=== PATIENT | female | born 1990 | race Caucasian/White ===

== ENCOUNTER 2018-05-24 15:26 | Emergency (ER) | payer OTHER ==
[2018-05-24 15:44] VITALS: BMI 28.3
--- NOTE | 2018-05-24 16:18 | PDOC ---
History of Present Illness - General Chief Complaint: Pain Stated Complaint: BODY ACHES Time Seen by Provider: 05/24/18 16:18 - History of Present Illness Initial Comments: 05/25/18 10:46 Chief complaint: Body aches History of present illness: Patient developed generalized body aches during the day today, mild nausea, and rapid heartbeat Review of systems: Denies fever/chills, URI symptoms, sore throat, cough, chest pain, shortness of breath, abdominal pain, nausea, vomiting, diarrhea, dysuria or other urinary tract symptoms, vaginal discharge. She is just finishing her menses. No missed periods. She had a flu shot several weeks ago. Past medical history: Hypothyroidism, but otherwise healthy. Social/family history: No drugs or recent alcohol, tobacco. Family history: Reviewed and noncontributory Physical exam: Alert oriented 3 well-developed well-nourished mild distress due to body aches and nausea. No localizing pain Afebrile, vital signs normal except for mild tachycardia 120/m PERRLA 4 mm, fundi benign with sharp disc margins and good central venous pulsations. Conjunctivae, ears, nose, throat clear. Dentition, however, especially of the right lower molars, shows considerable damage, but no inflammation or swelling of the gingiva and no palpable or visible swelling of the face. Neck supple without bruit mass or nodes. No thyroid enlargement or inflammation is visualized or palpated Lungs clear to P&A bilaterally, full breath sounds. No wheezes rales or rhonchi CV S1 and S2 normal without murmur rub or gallop pulses full and symmetric no JVD or edema no bruits. Careful auscultation with the patient sitting up and leaning forward showed no murmurs or rubs as well. Abdomen soft nontender without mass or organomegaly. Nondistended. Bowel sounds normal. No CVAT Extremities no CCE. Skin clear, no rash, adequate turgor and wet mucous membranes Neurological C2 to 12 intact. Strength full and symmetric. No focal sensory or motor deficits. Gait stable and unimpaired. Impression: Most likely viral syndrome, flu variant, rule out occult UTI. No obvious evidence of tickborne illness or subacute bacterial endocarditis. Plan: CBC, chemistries, urinalysis, urine culture, blood cultures. Symptomatic treatment with fluids and analgesics. Observation Past History - Past Medical History Allergies/Adverse Reactions: Allergies Allergy/AdvReac Type Severity Reaction Status Date / Time No Known Allergies Allergy Verified 05/24/18 15:28 Home Medications: Ambulatory Orders Levothyroxine [Synthroid -] 50 mcg PO DAILY 05/24/18 Phentermine HCl 30 mg PO DAILY 05/24/18 COPD: No Thyroid Disease: Yes - Immunization History Td Vaccination: Yes Immunization Up to Date: Yes - Suicide/Smoking/Psychosocial Hx Smoking Status: Yes Smoking History: Former smoker Have you smoked in the past 12 months: No Number of Cigarettes Smoked Daily: 3 If you are a former smoker, when did you quit?: 2 YEARS AGO Information on smoking cessation initiated: No Hx Alcohol Use: No Drug/Substance Use Hx: No Substance Use Type: None *Physical Exam - Vital Signs Last Vital Signs Temp Pulse Resp BP Pulse Ox 99 F 120 H 16 114/77 100 05/24/18 15:27 05/24/18 15:27 05/24/18 15:27 05/24/18 15:27 05/24/18 15:27 ED Treatment Course - LABORATORY CBC & Chemistry Diagram: 05/24/18 16:49 05/24/18 16:49 Medical Decision Making - Medical Decision Making 05/24/18 18:47 White blood count is over 22,000, with a left shift, but otherwise blood work is without significant abnormality. Urine shows no sign of infection. Blood cultures and urine cultures pending. Lactate drawn. Patient feels much better. Myalgias have resolved. She is asymptomatic at present except for the awareness of an accelerated heart rate, which may be partially due to anxiety. Awaiting lactate level. Signed out to Dr. Youngblood at 7 PM pending lactate level and further observation and disposition. 05/25/18 10:54 *DC/Admit/Observation/Transfer Diagnosis at time of Disposition: Myalgia, Leukocytosis - Discharge Dispostion Disposition: HOME Condition at time of disposition: Stable - Referrals - Patient Instructions Additional Instructions: For body aches alternate Tylenol with Motrin 2 tablets every 3-4 hours. Stay well-hydrated. Return to the emergency department immediately with ANY new, persistent or worsening symptoms. Continue any medications as previously prescribed by your physician. You should follow up with your primary doctor as soon as possible regarding today's emergency department visit. . Please make sure your doctor reviews the results of your emergency evaluation. Thank you for coming to the Emergency Department today for your care. It was a pleasure to see you today. Please note that your evaluation is INCOMPLETE until you follow-up with your doctor. - Post Discharge Activity Forms/Work/School Notes: Back to Work
[2018-05-24] MEDS ORDERED: SODIUM CHLORIDE 1,000 ML IV STA ×2 (16:19→18:50)
[2018-05-24] MEDS ORDERED: ACETAMINOPHEN 1000 MG/100 ML VIAL (NON FORMULARY) IVPB ONE (16:19)
[2018-05-24] MEDS ORDERED: ACETAMINOPHEN INJECTION 100 ML IVPB ONE (16:36)
[2018-05-24 16:41] LABS: URINE APPEARANCE Slightly; URINE BILIRUBIN Negative (NEGATIVE); URINE COLOR Yellow; URINE GLUCOSE (UA) Negative (NEGATIVE); URINE KETONE Trace (NEGATIVE); URINE LEUK ESTERASE TRACE (NEGATIVE); URINE NITRITE Negative (NEGATIVE); URINE PROTEIN 1+ (NEGATIVE); URINE UROBILINOGEN 0.2 (0.2-1.0)
[2018-05-24 16:59] LABS: HEMATOCRIT 37.7 % (32.4-45.2); HEMOGLOBIN 12.3 GM/dl (10.7-15.3); MCH 29.2 pg (25.7-33.7); MCHC 32.6 g/dl (32.0-36.0); MEAN CELL VOLUME 89.7 fl (80-96); MEAN PLT VOLUME 7.8 fl (7.5-11.1); PLATELET COUNT 270 K/MM3 (134-434); RDW 12.9 % (11.6-15.6); WHITE BLOOD COUNT 22.6 K/mm3 (4.0-10.8)
[2018-05-24 17:00] LABS: EPI CELLS FEW /HPF; URINE BACTERIA 1+ /hpf (NEGATIVE)
[2018-05-24 17:09] LABS: ALK PHOS 42 U/L (32-92); ANION GAP 6 MMOL/L (8-16); BILIRUBIN,TOTAL 0.7 mg/dl (0.2-1.0); BLOOD UREA NITROGEN 12 mg/dl (7-18); CALCIUM 9.2 mg/dl (8.4-10.2); CHLORIDE 103 mmol/L (98-107); CO2 21 mmol/L (22-28); CREATININE 0.6 mg/dl (0.6-1.3); GLUCOSE,RANDOM 108 mg/dl (74-106); SGOT/AST 16 U/L (10-42); SGPT/ALT 12 U/L (10-40); SODIUM 130 mmol/L (136-145); TOT PROT 7.3 g/dl (6.4-8.3)
[2018-05-24 17:27] LABS: POTASSIUM 4.1 mmol/L (3.5-5.1)
[2018-05-24 17:30] LABS: PLATELET ESTIMATE ADEQUATE
[2018-05-24 19:55] VITALS: BP 109/70; PULSE 94; TEMP 99
--- NOTE | 2018-05-24 20:02 | PDOC ---
*Physical Exam - Vital Signs Last Vital Signs Temp Pulse Resp BP Pulse Ox 99 F 94 H 16 109/70 100 05/24/18 19:54 05/24/18 19:54 05/24/18 19:54 05/24/18 19:54 05/24/18 19:54 ED Treatment Course - LABORATORY CBC & Chemistry Diagram: 05/24/18 16:49 05/24/18 16:49 - ADDITIONAL ORDERS Additional order review: Laboratory Results 05/24/18 05/24/18 05/24/18 17:50 16:49 16:30 Sodium 130 L Potassium 4.1 Chloride 103 Carbon Dioxide 21 L Anion Gap 6 L BUN 12 Creatinine 0.6 Creat Clearance w eGFR > 60 Random Glucose 108 H D Lactic Acid 0.7 Calcium 9.2 Total Bilirubin 0.7 AST 16 ALT 12 Alkaline Phosphatase 42 Total Protein 7.3 Albumin 4.0 Urine Color Yellow Urine Appearance Slightly Urine pH 8.0 Ur Specific [place] 1.020 Urine Protein 1+ H Urine Glucose (UA) Negative Urine Ketones Trace Urine Blood 1+ H Urine Nitrite Negative Urine Bilirubin Negative Urine Urobilinogen 0.2 Ur Leukocyte Esterase Trace H D Urine RBC 10-20 Urine WBC 2-5 Ur Epithelial Cells Few Urine Bacteria 1+ 05/24/18 16:49 RBC 4.20 MCV 89.7 MCHC 32.6 RDW 12.9 MPV 7.8 Neutrophils % No Result Required. Lymphocytes % No Result Required. - Medications Given in the ED: ED Medications Discontinued Medications Generic Name Dose Route Start Last Admin Trade Name Artq PRN Reason Stop Dose Admin Acetaminophen 1,000 mg 05/24/18 16:19 05/24/18 16:49 Ofirmev Injection - IVPB 05/24/18 16:20 1,000 mg ONCE ONE Administration Sodium Chloride 1,000 mls @ 1,000 mls/hr 05/24/18 16:19 05/24/18 16:49 Normal Saline - IV 05/24/18 17:18 1,000 mls/hr ASDIR STA Administration Sodium Chloride 1,000 mls @ 1,000 mls/hr 05/24/18 18:50 05/24/18 18:54 Normal Saline - IV 05/24/18 19:49 1,000 mls/hr ASDIR STA Administration Progress Note - Progress Note Progress Note: This Patient Was Transferred to [place] from Dr. Williamson at 1900 hrs. Patient is a 28-year-old female who is healthy with no significant medical history who comes in complaining of fever and body aches. Patient does have a markedly elevated white count with a left shift. Patient was hydrated with IV fluid and given IV Tylenol with resolution of her complaints and symptoms. Patient's lactic acid is pending\ Plan is if patient's lactic acid is normal patient will be discharged told to follow up with her doctor on Tuesday and return if any thing worsens. 20:0 patient's lactic acid is normal. Patient will be discharged home *DC/Admit/Observation/Transfer Diagnosis at time of Disposition: Myalgia Leukocytosis Qualifiers: Leukocytosis type: unspecified Qualified Code(s): D72.829 - Elevated white blood cell count, unspecified - Discharge Dispostion Disposition: HOME Condition at time of disposition: Stable Decision to Admit order: No - Referrals - Patient Instructions Additional Instructions: For body aches alternate Tylenol with Motrin 2 tablets every 3-4 hours. Stay well-hydrated. Return to the emergency department immediately with ANY new, persistent or worsening symptoms. Continue any medications as previously prescribed by your physician. You should follow up with your primary doctor as soon as possible regarding today's emergency department visit. . Please make sure your doctor reviews the results of your emergency evaluation. Thank you for coming to the Emergency Department today for your care. It was a pleasure to see you today. Please note that your evaluation is INCOMPLETE until you follow-up with your doctor. - Post Discharge Activity
== END 2018-05-24 20:16 | disposition home or self-care (01) ==
LOC: FER 15:26
PROC: 3E033NZ Introduction of Analgesics, Hypnotics, Sedatives into Peripheral Vein, Percutaneous Approach (ICD-10-PCS; principal; 2018-05-24)
PROC: 3E0337Z Introduction of Electrolytic and Water Balance Substance into Peripheral Vein, Percutaneous Approach (ICD-10-PCS; 2018-05-24)
DX: M79.10 Myalgia, unspecified site (principal); D72.829 Elevated white blood cell count, unspecified; E03.9 Hypothyroidism, unspecified
CPT/HCPCS: 36415; 80053; 81003; 81015; 83605; 85025; 87040; 87086; 99283-25; J0131; J7030